=== PATIENT | male | born 1995 | race African-American/Black ===

== ENCOUNTER 2016-09-07 15:38 | Emergency (ER) | payer OTHER ==
[2016-09-07] MEDS ORDERED: ONDANSETRON 4 MG/2 ML VIAL IVP STA (16:40)
[2016-09-07] MEDS ORDERED: KETOROLAC 60 MG/2 ML VIAL IVP STA (16:40)
--- NOTE | 2016-09-07 16:43 | ED Physician Documentation ---
PD HPI HEADACHE - Stated complaint Stated Complaint: FLU LIKE SYMPTOMS - Chief complaint Chief Complaint: Neuro - History obtained from History obtained from: Patient, Family () - History of Present Illness Timing - onset: Other (Previously healthy 20-year-old gentleman, active duty in the [employer]. The last 2 and half weeks he's had almost daily headaches that are worse in the morning, radiating from the occiput to frontal area. For the last week and a half he's had frequent vomiting associated with them, not every day but most days. He tried Tylenol and ibuprofen without relief. He denies any fevers. He does have photophobia. No personal history of headache syndrome.) Review of Systems Ten Systems: 10 systems reviewed and negative Constitutional: denies: Fever, Chills Eyes: reports: Photophobia. denies: Loss of vision, Decreased vision Ears: denies: Loss of hearing, Ear pain Nose: denies: Rhinorrhea / runny nose, Congestion Cardiac: denies: Chest pain / pressure, Palpitations Respiratory: denies: Dyspnea, Cough PD PAST MEDICAL HISTORY - Past Medical History Past Medical History: No - Past Surgical History Past Surgical History: No - Present Medications Home Medications: Ambulatory Orders Medication Instructions Recorded Confirmed Metoclopramide [Reglan] 10 mg PO Q6H PRN #20 tablet 09/07/16 Sumatriptan [Imitrex] 25 mg PO BID PRN #10 tablet 09/07/16 - Allergies Allergies/Adverse Reactions: Allergies Allergy/AdvReac Type Severity Reaction Status Date / Time No Known Drug Allergies Allergy Verified 09/07/16 15:46 - Social History Does the pt smoke?: No Smoking Status: Never smoker Does the pt drink ETOH?: No Does the pt have substance abuse?: No - Immunizations Immunizations are current?: Yes - POLST Patient has POLST: No PD ED PE NORMAL - Vitals Vital signs reviewed: Yes - General General: Alert and oriented X 3, No acute distress - HEENT HEENT: PERRL, EOMI, Ears normal - Neck Neck: Supple, no meningeal sign, No bony TTP, No bruit - Cardiac Cardiac: RRR, No murmur - Respiratory Respiratory: No respiratory distress, Clear bilaterally - Abdomen Abdomen: Normal bowel sounds, Soft, Non tender - Back Back: No CVA TTP, No spinal TTP - Extremities Extremities: No edema, No calf tenderness / cord - Neuro Neuro: Alert and oriented X 3, cytogeneticist 2-12 intact, No motor deficit, No sensory deficit, Normal speech - Psych Psych: Normal mood, Normal affect Results - Vitals Vitals: Vital Signs - 24 hr 09/07/16 09/07/16 15:44 18:12 Temperature 36.5 C 37.1 C Heart Rate 76 51 L Respiratory 16 20 Rate Blood Pressure 152/81 H 137/79 H O2 Saturation 100 100 Oxygen O2 Source Room air - Labs Labs: Laboratory Tests 09/07/16 09/07/16 09/07/16 16:47 16:47 16:47 WBC 4.6 L RBC 4.17 L Hgb 13.7 L Hct 40.2 L MCV 96.6 H MCH 32.8 H MCHC 34.0 RDW 13.2 Plt Count 191 MPV 9.1 Neut # 2.8 Lymph # 1.3 L [place] # 0.4 Eos # 0.1 Baso # 0.0 Absolute Nucleated RBC 0.01 Nucleated RBCs 0.1 Sodium 138 Potassium 4.0 Chloride 103 Carbon Dioxide 28 Anion Gap 7.0 BUN 20 Creatinine 1.1 Estimated GFR (MDRD) 103 Glucose 82 Calcium 9.7 Total Bilirubin 0.8 AST 31 ALT 25 Alkaline Phosphatase 70 Total Protein 7.2 Albumin 4.6 Globulin 2.6 Albumin/Globulin Ratio 1.8 Lipase 14 L TSH 0.83 Infectious [place] Assay 09/07/16 16:47 WBC RBC Hgb Hct MCV MCH MCHC RDW Plt Count MPV Neut # Lymph # [place] # Eos # Baso # Absolute Nucleated RBC Nucleated RBCs Sodium Potassium Chloride Carbon Dioxide Anion Gap BUN Creatinine Estimated GFR (MDRD) Glucose Calcium Total Bilirubin AST ALT Alkaline Phosphatase Total Protein Albumin Globulin Albumin/Globulin Ratio Lipase TSH Infectious [place] Assay NEGATIVE PD MEDICAL DECISION MAKING - ED course ED course: 20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 Blood work only notable for mild viral pattern with leukopenia. Head CT basically negative. Didn't have much relief with Toradol and Zofran but did have good relief with Imitrex. There is no clinical evidence of meningitis. The patient and family were counseled as to the diagnosis and need for followup. I counseled the patient with regard to signs and symptoms that would necessitate an urgent reevaluation in the emergency department. They understand they are welcome to return at any time if worse or if not improving as expected. This document was made in part using voice recognition software. While efforts are made to proofread this document, sound alike and grammatical errors may occur. Departure - Departure Disposition: 01 Home, Self Care Clinical Impression: Headache Qualifiers: Headache type: unspecified Headache chronicity pattern: acute headache Intractability: not intractable Qualified Code(s): R51 - Headache Vomiting Qualifiers: Vomiting type: unspecified Vomiting Intractability: non-intractable Nausea presence: with nausea Qualified Code(s): R11.2 - Nausea with vomiting, unspecified Condition: Good Record reviewed to determine appropriate education?: Yes Instructions: ED Headache Migraine Prescriptions: Sumatriptan [Imitrex] 25 mg PO BID PRN #10 tablet PRN Reason: Headache Metoclopramide [Reglan] 10 mg PO Q6H PRN #20 tablet PRN Reason: Nausea / Vomiting Comments: Call your doctor to arrange a follow up appointment. Make the next available appointment. In the interim return anytime if worse or if new symptoms develop. Your blood pressure was elevated today on check in to the emergency department. This does not mean that you have hypertension, it is a common phenomenon to check into the emergency department and have elevated blood pressure. I recommend that you see your primary care physician within the week to have it rechecked when you're feeling better. Forms: Activity restrictions
[2016-09-07 16:52] LABS: BASOPHILS % (AUTO) 0.7 %; EOSINOPHILS # (AUTO) 0.1 10^3/uL (0.0-0.7); EOSINOPHILS % (AUTO) 2.8 %; HCT - HEMATOCRIT 40.2 % (42.0-52.0); HGB - HEMOGLOBIN 13.7 g/dL (14.0-18.0); LYMPHOCYTES # (AUTO) 1.3 10^3/uL (1.5-3.5); LYMPHOCYTES % (AUTO) 28.1 %; MEAN CORPUSCULAR HEMOGLOBIN 32.8 pg (27.0-31.0); MEAN CORPUSCULAR VOLUME 96.6 fL (80.0-94.0); MEAN PLATELET VOLUME 9.1 fL (7.4-11.4); MONOCYTES # (AUTO) 0.4 10^3/uL (0.0-1.0); MONOCYTES % (AUTO) 8.5 %; NEUTROPHILS # (AUTO) 2.8 10^3/uL (1.5-6.6); NEUTROPHILS % (AUTO) 59.9 %; NUCLEATED RED BLOOD CELLS AUTO 0.1 /100WBC; RED BLOOD COUNT 4.17 10^6/uL (4.70-6.10); RED CELL DISTRIBUTION WIDTH 13.2 % (12.0-15.0); UNCORRECTED WHITE BLOOD COUNT 4.6 x10^3/uL; WHITE BLOOD COUNT 4.6 x10^3/uL (4.8-10.8)
[2016-09-07 17:05] LABS: ALBUMIN/GLOBULIN RATIO 1.8 (1.0-2.2); BILIRUBIN,TOTAL 0.8 mg/dL (0.2-1.0); CALCIUM 9.7 mg/dL (8.5-10.3); CREATININE 1.1 mg/dL (0.6-1.2); TOTAL PROTEIN 7.2 g/dL (6.7-8.2)
[2016-09-07] MEDS ORDERED: ONDANSETRON 4 MG/2 ML VIAL ONE (17:05)
[2016-09-07] MEDS ORDERED: KETOROLAC 30 MG/ML VIAL ONE (17:05)
--- NOTE | 2016-09-07 17:59 | CT Preliminary Report ---
Exam: CT Head W/O IMPRESSION: 1. No acute intracranial abnormality. 2. Mild paranasal sinus opacification as above. [facility] SITE ID: [id number]
--- NOTE | 2016-09-07 18:02 | CT Report ---
EXAM: CT HEAD EXAM DATE: 09/07/2016 05:44 PM. CLINICAL HISTORY: Headache, nausea and vomiting for 2-1/2 weeks. The patient denies a history of trau ma. COMPARISON: None. TECHNIQUE: Multiaxial CT images were obtained from the foramen magnum to the vertex. IV contrast: Non e. Reformats: Coronal. In accordance with CT protocol optimization, one or more of the following dose reduction techniques w ere utilized for this exam: automated exposure control, adjustment of mA and/or KV based on patient s ize, or use of iterative reconstructive technique. FINDINGS: Parenchyma: No intraparenchymal hemorrhage. No evidence of mass, midline shift, or CT findings of inf arction. Carlos-white differentiation is distinct. Extraaxial Spaces: Normal for age. No subdural or epidural collections identified. Ventricles: Normal in size and position. Sinuses: Mucous retention cyst in the right maxillary sinus. Partial opacification of the left maxill lupe sinuses and ethmoid sinuses. The remainder of the visualized paranasal sinuses and mastoid air ce lls are clear. Bones: No evidence of fracture or calvarial defect. Other: None. IMPRESSION: 1. No acute intracranial abnormality. 2. Mild paranasal sinus opacification as above. [facility] Referring Provider Line: [phone] SITE ID: [id number]
[2016-09-07 18:11] LABS: MONO NEG QC NEGATIVE (Negative); MONO POS QC POSITIVE (Positive)
[2016-09-07 18:13] VITALS: BP 137/79
[2016-09-07] MEDS ORDERED: SUMAtriptan 6 MG/0.5 ML VIAL SUBQ STA (18:17)
[2016-09-07] MEDS ORDERED: SUMAtriptan 6 MG/0.5 ML VIAL SUBQ ONE (18:22)
== END 2016-09-07 19:20 | disposition home or self-care (01) ==
LOC: ED 15:38
DX: R51 Headache (principal); R11.2 Nausea with vomiting, unspecified; D72.819 Decreased white blood cell count, unspecified; R03.0 Elevated blood-pressure reading, without diagnosis of hypertension
CPT/HCPCS: 36415; 70450; 80053; 83690; 84443; 85025; 86308; 96372; 96374; 96375; 99283; 99284

== ENCOUNTER 2017-04-15 18:03 | Emergency (ER) | payer OTHER ==
[2017-04-15 18:22] VITALS: BP 142/78
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
== END 2017-04-15 18:28 | disposition home or self-care (01) ==
LOC: ED 18:03
DX: T75.4XXA Electrocution, initial encounter (principal); W86.8XXA Exposure to other electric current, initial encounter; Y99.1 Military activity; R03.0 Elevated blood-pressure reading, without diagnosis of hypertension
CPT/HCPCS: 93005; 99282; 99283